=== PATIENT | male | born 1970 | race Caucasian/White ===

== ENCOUNTER 2019-05-29 13:07 | Emergency (ER) | payer MEDICARE, OTHER ==
[~2019-05-29] VITALS: Ht 177.8 cm; Wt 104.3 kg
[2019-05-29 13:11] VITALS: BP 141/90
[2019-05-29] MEDS ORDERED: HYDROCHLOROTHIA25 MG ORAL (13:42)
[2019-05-29] MEDS ORDERED: STRIBILD TABLE1 EACH PO (13:42)
--- NOTE | 2019-05-29 13:52 | Emergency Room Report ---
History of Present Illness General Chief Complaint: General Complaint Source: Patient (Annetta Renee) Present Illness HPI 49 YO Male presents to the ED c/o Swelling of the Tongue and upper lip. since this am. Pt. reports that swelling has reduced minimally after taking 3 25mg tabs of Benadryl. Pt. takes HCTZ and anti-retrovirals medications. Denies pain. He denies hx of allergies. Pt. denies fevers, chills or swollen tender lymph nodes. Denies rash. Denies new medications or body washes or creams. Denies swelling sensation in the throat or airway. Denies wheezing, or shortness of breath. Denies recent travel, recent illness or ill contacts. Denies blisters , oral lesions, or sloughing of the skin. Denies swelling elsewhere on the body right now but states 2 weeks ago he had lower lip swelling which went away on its own. (Annetta Renee) Allergies: Coded Allergies: No Known Allergies (Unverified , 05/29/19) Patient History Past Medical History: see triage record, HIV Past Surgical History: none Pertinent Family History: none Reviewed Nursing Documentation: PMH: Agreed; PSxH: Agreed (Annetta Renee) Nursing Documentation-PMH Past Medical History: No History, Except For Hx Hypertension: Yes History Of Psychiatric Problem: Yes - Chronic depression (Annetta Renee) Review of Systems All Other Systems: negative except mentioned in HPI (Annetta Renee) Physical Exam Vital Signs Date Time Temp Pulse Resp B/P (MAP) Pulse Ox O2 Delivery O2 Flow Rate FiO2 05/29/19 13:11 98.4 62 16 141/90 (107) 96 Room Air Sp02 EP Interpretation: reviewed, normal General Appearance: no apparent distress, alert, GCS 15, non-toxic Head: normocephalic, atraumatic Eyes: bilateral eye normal inspection, bilateral eye PERRL ENT: hearing grossly normal, normal voice, other - Angioedema involving the upper lip and tongue. Lower lip is uninvolved. no rashes, oral lesions/ulcers. Neck: full range of motion, other - no stridor, No rashes Respiratory: lungs clear, normal breath sounds, speaking full sentences Cardiovascular #1: regular rate, rhythm Musculoskeletal: back normal, gait/station normal, normal range of motion, non- tender Neurologic: alert, oriented x3, responsive, motor strength/tone normal, sensory intact, speech normal, grossly normal Psychiatric: judgement/insight normal Skin: no rash Lymphatic: no adenopathy (Annetta Renee) Medical Decision Making PA Attestation Dr. Argueta is my supervising Physician whom patient management has been discussed with. (Annetta Renee) Medicare Attestation Patient was seen and evaluated by myself as well I do agree with the exam and the intervention Patient has some complex presentation he had a similar episode involving the lower lip about a week ago 2 days ago he had surgery on his finger and had general anesthesia for that Differentials of hereditary angioedema versus other allergic type pathology are considered Patient's airway is patent no signs of any upper airway stridor Patient is stable for initial conservative outpatient trial Also encouraged highly to contact primary physician for close outpatient follow- up and testing (Leonor Argueta DO) Diagnostic Impression: Primary Impression: Angio-edema Qualified Codes: T78.3XXA - Angioneurotic edema, initial encounter ER Course 49 YO Male presents to the ED c/o Swelling of the Tongue and upper lip. since this am. Pt. reports that swelling has reduced minimally after taking 3 25mg tabs of Benadryl. Pt. takes HCTZ and anti-retrovirals medications. Denies pain. He denies hx of allergies. Pt. denies fevers, chills or swollen tender lymph nodes. Denies rash. Denies new medications or body washes or creams. Denies swelling sensation in the throat or airway. Denies wheezing, or shortness of breath. Denies recent travel, recent illness or ill contacts. Denies blisters , oral lesions, or sloughing of the skin. Denies swelling elsewhere on the body right now but states 2 weeks ago he had lower lip swelling which went away on its own. Ddx considered but are not limited to cellulitis, allergic reaction, angio-edema , abscess Vital signs: are WNL, pt. is afebrile H&PE are most consistent with Angioedema ORDERS: none required at this time, the diagnosis is clinical ED INTERVENTIONS: -IM solu-medrol, - Pepcid PO Observation of the patient for 2.75 hours no worsening or rapid progression of his symptoms. -Pt. will be d/c with very strict ED return precautions specifically related to his airway and ability to breathe. DISCHARGE: At this time pt. is stable for d/c to home. Will provide printed patient care instructions, and any necessary prescriptions. Care plan and follow up instructions have been discussed with the patient prior to discharge. (Annetta Renee) Last Vital Signs Date Time Temp Pulse Resp B/P (MAP) Pulse Ox O2 Delivery O2 Flow Rate FiO2 05/29/19 13:25 62 16 Room Air 05/29/19 13:11 98.4 141/90 96 (Annetta Renee) Disposition: HOME, SELF-CARE Condition: Stable Scripts Diphenhydramine Hcl (BENADRYL ALLERGY) 25 Mg Tablet 25 MG PO Q6HR, #20 TAB Prov: Annetta Renee 05/29/19 Methylprednisolone (Methylprednisolone*) 4MG Dspk 4 MG ORAL DIRECTED for 6 Days, #21 EA 0 Refills Day 1: Two tablets before breakfast, one after lunch, one after dinner, and two at bedtime. If started late in the day, take all six tablets at once or divide into two or three doses, unless otherwise directed by prescriber. Day 2: One tablet before breakfast, one after lunch, one after dinner, and two at bedtime Day 3: One tablet before breakfast, one after lunch, one after dinner, and one at bedtime Day 4: One tablet before breakfast, one after lunch, and one at bedtime Day 5: One tablet before breakfast and one at bedtime Day 6: One tablet before breakfast Prov: Annetta Renee 05/29/19 Referrals: NON PHYSICIAN (PCP) Patient Instructions: Angioedema Additional Instructions: Take medications as directed. Follow up with a Primary Care Provider for Software Clerk Referral in 3-5 days, even if your symptoms have resolved. Return sooner to ED if new symptoms occur, or current symptoms become worse. - Please note that this Emergency Department Report was dictated using [employer] car conductor technology software, occasionally this can lead to erroneous entry secondary to interpretation by the dictation equipment. Annetta Renee May 29, 2019 13:52 Leonor Argueta DO May 29, 2019 14:47
[2019-05-29] MEDS: Solu-MEDROL 125mg Inj IM ONE (14:12)
[2019-05-29] MEDS ORDERED: BENADRYL ALLERG25 M1 PO (15:06)
[2019-05-29] MEDS ORDERED: MEDROL DOSEPAK4 MG ORAL (15:06)
[2019-05-29 15:16] VITALS: BP 134/79
[2019-05-29 15:17] VITALS: BP 134/79
== END 2019-05-29 15:17 | disposition home or self-care (01) ==
LOC: EMR 13:30
DX: T78.3XXA Angioneurotic edema, initial encounter (principal); I10 Essential (primary) hypertension; F32.9 Major depressive disorder, single episode, unspecified
CPT/HCPCS: 96372; 99283; J2930